=== PATIENT | male | born 1955 | race Caucasian/White ===

== ENCOUNTER 2017-02-05 08:35 | Inpatient (IN) | payer OTHER ==
--- NOTE | 2017-02-02 10:31 | HP ---
DATE OF CLINIC: 01/24/2017 DARIUS CHURCH : 1955 PLANNED PROCEDURE: Right Knee Unicompartmental Arthroplasty DATE OF SURGERY: February 05, 2017 SURGEON: Henrique Vasquez M.D. HISTORY OF PRESENT ILLNESS Darius Church is a 61 year old male. * Medication list reviewed with patient allergy list reviewed with patient. Mr. Church is in today pre-operatively for his upcoming right unicompartmental versus total knee arthroplasty with Dr. Vasquez on 02/05/17. Patient presents in good spirits and is ready to proceed. Patient states he had a recent fall on his left knee resulting in bruising but no instability or ongoing pain. Patient denies recent illness, change in health or prior surgical complications. His recent consult with Dr. Vasquez follows: 61-year-old male previously known to me for a right knee arthroscopy with partial medial meniscectomy and a chondroplasty of the medial femoral condyle over 3 years ago. He did quite well with this eventually having marked improvement in his pre-op symptoms over the course of 8 months or so. Unfortunately, he has begun having worsening problems. He recently saw Cem for this on 08/03/16. Over the last several months it has been very difficult to ambulate even a short distance because of weight-bearing related medial pain. He has had some associated swelling as well as night pain. At times he feels a sharp, catching sensation, no traumatic events. He has no radiating or radicular symptoms. When he saw Cem, radiographs were obtained that are available for my review concerning for AVN of the medial femoral condyle, certainly at least an area of osteochondral abnormality in the medial femoral condyle. Cem ordered an MRI scan that is available for my review. It confirms a greater than 2cm osteochondral lesion of the medial femoral condyle surrounded by a fluid filled cleft. He is interested in discussing definitive management options. We discussed both operative and non-operative management and he has elected to proceed with surgical intervention. He presents today preoperatively. Comorbidities include hypertension and obesity. CURRENT MEDICATION * AmLODIPine Besylate 10 MG Tablet once a day 0 days, 0 refills * Losartan Potassium 50 MG Tablet once a day 0 days, 0 refills * Metoprolol Succinate ER 25 MG Tablet Extended Release 24 Hour once a day 0 days, 0 refills PAST MEDICAL/SURGICAL HISTORY Reported: Medical: History of Arthritis. Surgical / Procedural: Prior surgery Back surgery 1996, Arthroscopy Right knee scope/PMM 07/08/[address] Vasquez, and Back Surgery 1996. SOCIAL HISTORY Behavioral: Caffeine use and non-smoker never smoked. Smoking status: Never smoker. Alcohol: Alcohol a lot and alcohol use. Work: Occupation retired. ALLERGIES * No Known Allergies REVIEW OF SYSTEMS Systemic: No fever and no recent weight change. Head: No head symptoms. Cardiovascular: No cardiovascular symptoms. Pulmonary: No pulmonary symptoms. Gastrointestinal: No gastrointestinal symptoms. Psychological: No psychological symptoms. Skin: No skin lesions and no rash: Musculoskeletal: Left knee contusion. PHYSICAL FINDINGS * Vitals taken 01/24/2017 10:47 am BP-Sitting R 131/89 mmHg 100 - 120/60 - 80 BP Cuff Size Regular Pulse Rate-Sitting 77 bpm 50 - 100 Temp-Oral 98.6 F 96 - 101 Height 69 in 64 - 74 Weight 291 lbs 123 - 215 Body Mass Index 43.0 kg/m2 Body Surface Area 2.42 m2 Pain Level 0 Ears, Nose, Throat: * ENT: normal. Lungs: * Clear to auscultation. Cardiovascular: Heart Rate and Rhythm: * Normal. Abdomen: * Normal. Neurological: Motor: * Dominant Hand = Right Hand. Patient is an obese male in no acute distress, normal-appearing mood and affect. He has a very stiff-legged, antalgic gait. Right knee exam shows varus alignment that is reducible to neutral. Skin integrity is well-preserved, no wounds, rashes or lesions. He does have a 1+ effusion. No focal swelling. He is quite tender over the medial jointline that is reproducible. No pain with patellofemoral compression. NT laterally. Motion actively is 10-85 degrees, passively 0-105 degrees with pain at extremes. He has significant discomfort with Ibeth's, unable to tolerate squat. Ligamentous exam is intact for cruciates and collaterals. Calf is soft and NT. Distal light touch sensation and motor function are grossly intact and symmetric. Pulses are palpable. Gentle rotation of the hip is non-irritable. Contralateral knee exam is normal. TESTS Imaging as above. 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 Suggest underlying causative factor is AVN. PREVIOUS TESTS * Test: CBC WITH DIFF Report Date: 01/17/2017 WBC 5.6 10*3/mL BASOPHIL 0.7 % RBC 4.54 10*6/uL Low NEUTROPHILS 71.9 % MCH 34.6 pg High MCHC 35.9 g/dL RDW 12.9 % MCV 96.3 fL High PLATELET COUNT 214 10*3/mL IMM NEUT % 0.5 % IMM NEUT # 0.0 10*3/mL MONOCYTES 6.4 % EOSINOPHIL 0.5 % Low HCT 43.7 % HGB 15.7 g/L LYMPHOCYTE 20.0 % ANC 4.0 10*3/mL * Test: URINALYSIS Report Date: 01/17/2017 GLUCOSE NEGATIVE PH,URINE 6.0 SPEC. GRAVITY 1.020 KETONE NEGATIVE NITRITE NEGATIVE BLOOD NEGATIVE BILIRUBIN NEGATIVE APPEARANCE CLEAR PROTEIN NEGATIVE COLOR LOWELL LEUK ESTERASE NEGATIVE UROBILINOGEN NORMAL * Test: PROTHROMBIN TIME Report Date: 01/17/2017 PROTIME 9.9 s INR 0.94 * Test: PARTIAL THROMBOPLASTIN TIME Report Date: 01/17/2017 APTT 24.7 s * Test: COMPREHENSIVE METABOLIC PANEL Report Date: 01/17/2017 ALT/SGPT 30 U/L ALBUMIN 4.4 g/dL ALB/GLOB RATIO 1.5 BUN 22 mg/dL BUN/CREAT RATIO 22 High CALCIUM 9.2 mg/dL GLUCOSE 140 mg/dL High CREATININE 1.0 mg/dL SODIUM 139 meq/L POTASSIUM 3.4 meq/L Low CHLORIDE 100 meq/L CARBON DIOXIDE 32 meq/L High ANION GAP 10 meq/L TOT PROTEIN 7.3 g/dL GLOBULIN 2.9 g/dL BILI,TOTAL 0.9 mg/dL AST/SGOT 25 U/L ALK PHOSPHATASE 85 U/L GFR 76 * Test: MRSA SCREEN Report Date: 01/18/2017 MRSA SCREEN NEGATIVE * Test: MSSA SCREEN Report Date: 01/18/2017 MSSA SCREEN NEGATIVE FOR STAPHYLOCOCCUS AUREUS THERAPY * Patient not eligible for fall risk assessment. PLAN * Unilateral post-traumatic osteoarthritis, right knee Physical Therapy: PT Mary Kay [facility] * Aftercare following joint replacement surgery OxyCODONE HCl 5 MG TABS, 1or 2 tablets every 4 to 6 hours as needed, 5 days, 0 refills OxyCONTIN 10 MG T12A, 1 twice a day, 10 days, 0 refills TraMADol HCl 50 MG TABS, four times a day, 10 days, 0 refills * Knee replacement -partial, on the right (UKA) Discussed with patient in detail the limitations, expectations as well as risks and possible complications of surgery including, but not limited to wound problems or infection, neurovascular injury, continued knee pain or dysfunction, including the possibility of prosthetic wear or failure over time that may require additional operative or non-operative treatment. Patient also realizes the perioperative risks including risks associated with anesthesia and would like to proceed. A full PAR conference was held, questions and concerns addressed and informed consent was obtained. Patient will be sent from my office for completion of the preoperative workup [facility] consult for perioperative medical management. Patient will use aspirin 325mg daily for 6 weeks postoperatively for DVT prophylaxis. Patient would like to perform their postop PT at [facility] with right total knee arthroplasty protocol. CARE TEAM Korey Duran MD, PC [facility] CC: Korey Duran MD [facility]SEA [facility] RS/sg
[2017-02-05] MEDS ORDERED: FENTANYL 100 MCG/2 ML VIAL ONE (09:41)
[2017-02-05] MEDS ORDERED: MIDAZOLAM HCL 1 MG/ML 2ML VIAL ONE ×2 (09:41→11:06)
[2017-02-05] MEDS ORDERED: PROPOFOL 20 ML IV ONE ×3 (09:41→12:54)
[2017-02-05] MEDS ORDERED: CEFAZOLIN SODIUM 2 GRAM PREMIX 100 ML IV PRN (09:45)
[2017-02-05] MEDS ORDERED: LACTATED RINGERS 1,000 ML ONE ×3 (10:11→14:41)
[2017-02-05] MEDS ORDERED: IV START KIT ONE (10:11)
[2017-02-05] MEDS ORDERED: NERVE BLOCK PROCEDURAL TRAY 1 EACH ONE (10:19)
[2017-02-05] MEDS ORDERED: SPINAL PROCEDURAL TRAY 1 EACH ONE (10:19)
[2017-02-05] MEDS ORDERED: ROPIVACAINE 0.5% 30 ML VIAL ONE (10:19)
[2017-02-05] MEDS ORDERED: FAMOTIDINE 20 MG TABLET ONE (10:38)
[2017-02-05] MEDS ORDERED: OXYCODONE HCL 10 MG TAB.SR PO ONE ×2 (10:38→11:40)
[2017-02-05] MEDS ORDERED: ONDANSETRON 4 MG/2ML 2 ML VIAL ONE (10:38)
[2017-02-05] MEDS ORDERED: TRAMADOL HCL 50 MG TABLET ONE (10:38)
[2017-02-05] MEDS ORDERED: GABAPENTIN 600 MG TABLET ONE (10:39)
[2017-02-05] MEDS ORDERED: CELECOXIB 200 MG CAPSULE ONE (10:39)
[2017-02-05] MEDS ORDERED: CLONIDINE HCL 0.1 MG/24 HR (7 DAY PATCH) TD ONE (10:39)
[2017-02-05] MEDS ORDERED: FAMOTIDINE 20 MG TABLET PO ONE (11:40)
[2017-02-05] MEDS ORDERED: TRAMADOL HCL 50 MG TABLET PO ONE (11:40)
[2017-02-05] MEDS ORDERED: GABAPENTIN 600 MG TABLET PO ONE (11:40)
[2017-02-05] MEDS ORDERED: TRANEXAMIC ACID 1,000 MG in SODIUM CHLORIDE 0.9% 100 ML IV PRN (11:40)
[2017-02-05] MEDS ORDERED: BUPIVACAINE 0.25% (MDV) 24 ML, MORPHINE SULFATE 8 MG, EPINEPHRINE 0.3 MG in SODIUM CHLO... IF PRN (11:40)
[2017-02-05] MEDS ORDERED: CELECOXIB 200 MG CAPSULE PO ONE (11:40)
[2017-02-05] MEDS ORDERED: ONDANSETRON 4 MG/2ML 2 ML VIAL IV ONE (11:40)
[2017-02-05] MEDS ORDERED: POLYMYXIN B SULFATE 500,000 UNITS, BACITRACIN 25,000 UNITS in SODIUM CHLORIDE 3 L IRRIG... IR PRN (11:40)
[2017-02-05] MEDS ORDERED: CLONIDINE HCL 0.1 MG/24 HR (7 DAY PATCH) TD SCH (11:40)
[2017-02-05] MEDS ORDERED: BUPIVACAINE 0.25% (MDV) 20 ML in SODIUM CHLORIDE 0.9% FLUSH 20 ML IF PRN (11:40)
[2017-02-05] MEDS ORDERED: ONDANSETRON 4 MG/2ML 2 ML VIAL IV PRN ×2 (12:52→15:27)
[2017-02-05] MEDS ORDERED: KETAMINE HCL UD SYRINGE 100 MG/2 ML IV ONE (12:52)
[2017-02-05] MEDS ORDERED: MEPERIDINE 25 MG/ML SYRINGE IV PRN (12:52)
[2017-02-05] MEDS ORDERED: HYDRALAZINE HCL 20 MG/1 ML VIAL IV PRN (12:52)
[2017-02-05] MEDS ORDERED: LABETALOL HCL 5 MG/ML 20ML VIAL IV PRN (12:52)
[2017-02-05] MEDS ORDERED: NALOXONE HCL 0.4 MG/ML VIAL IV PRN (12:52)
[2017-02-05] MEDS ORDERED: HYDROMORPHONE HCL 1 MG/ML SYRINGE IV PRN (12:52)
[2017-02-05] MEDS ORDERED: ATROPINE SULFATE 0.4 MG/1 ML VIAL IV PRN (12:52)
[2017-02-05] MEDS ORDERED: PROMETHAZINE HCL 25 MG/ML VIAL IM PRN (12:52)
[2017-02-05] MEDS ORDERED: FENTANYL 100 MCG/2 ML VIAL IV PRN (12:52)
[2017-02-05] MEDS ORDERED: LACTATED RINGERS 1,000 ML IV SCH (13:00)
[2017-02-05] MEDS ORDERED: ON-Q PUMP/ROPIVACAINE 0.2% 450 ML ONE (14:32)
--- NOTE | 2017-02-05 14:45 | PCMBPN ---
Brief Post Op Note: Date of Procedure: 02/05/17 Preoperative Diagnosis: DJD right knee Postoperative Diagnosis: same Procedure: right knee UKA Surgeon: Henrique Vasquez MD Assist: Zahraa (YEN) Anesthesia: spinal/add block (Yousif) Findings: medial femoral DJD/AVN Condition: stable to PAR Complications: none IV Fluids: 2000 mLs of LR Urine Output: 200 mLs Estimated Blood Loss: 160 mLs Tourniquet Time: ~70 Specimens: [N/A] Implants: ZUK Drains: none
[2017-02-05] MEDS: ON-Q PUMP/ROPIVACAINE 0.2% 450 ML in PREMIX BAG 1 EACH NB PRN (15:14)
--- NOTE | 2017-02-05 15:20 | RAD ---
Exam: Two-view right knee COMPARISON: 08/03/2016 INDICATION: Postop right knee FINDINGS: AP and crosstable lateral views the right knee were obtained. There has been arthroplasty within the medial compartment of the right knee. Alignment is normal. No pericomponent fracture is identified. IMPRESSION: Expected postoperative appearance following arthroplasty within the medial compartment of the right knee.
[2017-02-05] MEDS ORDERED: ON-Q PUMP/ROPIVACAINE 0.2% 450 ML in PREMIX BAG 1 EACH NB PRN (15:27)
[2017-02-05] MEDS ORDERED: CALCIUM CARBONATE 500 MG TAB.CHEW PO PRN (15:27)
[2017-02-05] MEDS: HYDROMORPHONE HCL 0.5 MG/0.5 ML SYRINGE IV PRN ×2 (16:04→16:54)
[2017-02-05 16:43] VITALS: BMI 48.2
[2017-02-05] MEDS ORDERED: PUMP TUBING ONE (16:46)
[2017-02-05] MEDS: D5 1/2NS with 20 mEq KCL 1,000 ML IV SCH ×2 (16:55→22:25)
[2017-02-05] MEDS: KETOROLAC TROMETHAMINE 30 MG/ML 1 ML VIAL IV PRN (17:46)
[2017-02-05] MEDS: OXYCODONE HCL 5 MG TABLET PO PRN (18:46)
[2017-02-05] MEDS: CEFAZOLIN SODIUM 1 GRAM PREMIX 1 G in Premix (D5W) 50 ml 1 EACH IV SCH (21:00)
[2017-02-05] MEDS: ASCORBIC ACID 500 MG TABLET PO SCH (21:00)
[2017-02-05] MEDS: DOCUSATE SODIUM 100 MG CAPSULE PO SCH (21:00)
[2017-02-05] MEDS: ACETAMINOPHEN 500 MG TABLET PO SCH (21:00)
[2017-02-05] MEDS ORDERED: TRAMADOL HCL 50 MG TABLET PO PRN (21:00)
[2017-02-06] MEDS: ON-Q PUMP/ROPIVACAINE 0.2% 450 ML in PREMIX BAG 1 EACH NB PRN ×2 (03:15→08:20)
[2017-02-06] MEDS: OXYCODONE HCL 5 MG TABLET PO PRN ×4 (04:38→16:35)
[2017-02-06] MEDS: ACETAMINOPHEN 500 MG TABLET PO SCH ×3 (04:38→16:35)
[2017-02-06] MEDS: CEFAZOLIN SODIUM 1 GRAM PREMIX 1 G in Premix (D5W) 50 ml 1 EACH IV SCH (04:47)
[2017-02-06] MEDS: D5 1/2NS with 20 mEq KCL 1,000 ML IV SCH ×2 (05:55→12:02)
[2017-02-06 06:14] LABS: HEMATOCRIT 38.5 % (32.0-52.0); HEMOGLOBIN 13.3 gm/l (14.0-18.0); MEAN CELL VOLUME 100.5 fl (80.0-94.0); MEAN CORPUSCULAR HEMOGLOBIN 34.7 pg (27.0-31.0); MEAN CORPUSCULAR HGB CONC 34.5 g/dl (33.0-37.0); RED CELL DISTRIBUTION WIDTH 13.2 % (11.5-14.5)
[2017-02-06 06:29] LABS: CALCIUM 8.7 mg/dL (8.6-10.3)
--- NOTE | 2017-02-06 06:44 | CONS ---
Darius Church [id number] DATE OF ADMISSION: 02/05/2017 DATE OF CONSULTATION: 02/05/2017 PHYSICIAN REQUESTING CONSULTATION: Dr. Henrique Vasquez REASON FOR CONSULTATION: For the perioperative management of the patient's medical problems. These medical problems including chronic essential hypertension, obesity, and concerns regarding possible excessive alcohol use. PROCEDURE PERFORMED DURING THE HOSPITALIZATION: Includes right knee unicompartmental arthroplasty under spinal anesthesia performed earlier today without complications. TO SUMMARIZE THE ADMISSION AND HOSPITAL COURSE: The patient is a 61-year-old male admitted for elective surgery as mentioned above because of progressive knee pain failing conservative measures. REVIEW OF SYSTEMS: His preoperative review of systems was negative for any recent fevers, chills, or upper respiratory infections. He denies complaints of cough, dyspnea, wheezing, chest pain, shortness of breath, or palpitations. He denies nausea, vomiting, abdominal pain, diarrhea, or constipation. He has some knee pain as I mentioned above, but no other acute arthralgias. No headaches, fainting, blackouts, or seizures. No urinary complaints. His review of systems is otherwise negative. PAST MEDICAL HISTORY: Significant for hypertension and obesity. He has never had any medical hospitalizations. He denies history of chronic lung disease or coronary artery disease. PAST SURGICAL HISTORY: Significant for L5 surgery in 1996, right knee arthroscopy in 2012, and a hemorrhoidectomy years ago along with a colonoscopy years ago. ALLERGIES: He has no known drug allergies. CURRENT MEDICATIONS: Consist of: 1. Metamucil 1 dose a day. 2. Toprol XL 50 mg daily. 3. Cozaar 50 mg daily. 4. Chlorthalidone 25 mg daily. 5. Aspirin 1 to 2 twice daily as needed for arthritic pain. 6. Amlodipine 10 mg daily. FAMILY HISTORY: Unremarkable. SOCIAL HISTORY: He is . He has a number of grown kids. His primary care provider is Dr. Korey Duran in [place]. He denies tobacco or illicit drug use. He does drink wine regularly up to a bottle a night, but it is difficult to pin it down. PHYSICAL EXAMINATION: VITAL SIGNS: Show temperature 97.4, pulse 64, blood pressure 130/84, respirations 14, oxygen saturation 95% on 2 liters, body mass index is 48.2, weight is 131.4 kg. GENERAL: This is an obese male in no acute distress. HEENT: Unremarkable. LUNGS: Clear to auscultation bilaterally. CARDIOVASCULAR: Reveals a regular rate and rhythm without a murmur. ABDOMEN: Obese, soft, nontender, nondistended with positive bowel sounds. EXTREMITIES: Surgical dressing is present over the right knee. There is trace to 1+ pitting edema in both lower extremities. Capillary refill is less than 2 seconds in both feet. PREOPERATIVE LABORATORY STUDIES: Included a CBC with a white count of 5.6, hemoglobin of 15.7, platelet count of 214,000 drawn on January 17. Coagulation panel that same day was normal. Chemistry panel that same day showed a sodium of 139, potassium 3.4, carbon dioxide 32, BUN 22, creatinine 1.0, glucose 140, this was non-fasting. Urinalysis unremarkable. ASSESSMENT AND PLAN: The patient has chronic essential hypertension and morbid obesity, these medical problems are complicating recent right knee unicompartmental arthroplasty, also there is concern about daily alcohol use and the risk of potential alcohol withdraw. He is expected to be in the hospital for 24 to 48 hours. He is being allowed to drink wine with his dinner. He has parameters for his blood pressure medications ordered. His obesity will complicate his postoperative course. He will be followed by the hospitalist service while he is in the hospital and return to the care of his primary care provider, Dr. Duran at discharge. His venous thromboembolism risk is moderate and mechanical measures have been ordered for prophylaxis in addition to daily aspirin. JOB: [id number] CC: Dr. Henrique Duran
[2017-02-06] MEDS ORDERED: LOSARTAN POTASSIUM 50 MG TABLET PO SCH (09:00)
[2017-02-06] MEDS ORDERED: METOPROLOL SUCCINATE (XL) 50 MG TAB.PRT.SR PO SCH (09:00)
[2017-02-06] MEDS ORDERED: CELECOXIB 200 MG CAPSULE PO SCH (09:00)
[2017-02-06] MEDS ORDERED: MULTIVITAMINS 1 TAB TABLET PO SCH (09:00)
[2017-02-06] MEDS ORDERED: ASPIRIN (ENTERIC COATED) 325 MG TABLET.EC PO SCH (09:00)
[2017-02-06] MEDS ORDERED: CHLORTHALIDONE 50 MG TABLET PO SCH (09:00)
[2017-02-06] MEDS ORDERED: AMLODIPINE BESYLATE 5 MG TABLET PO SCH (09:00)
[2017-02-06] MEDS ORDERED: PSYLLIUM SEED PO SCH (09:00)
[2017-02-06] MEDS: ASCORBIC ACID 500 MG TABLET PO SCH (10:06)
[2017-02-06] MEDS: DOCUSATE SODIUM 100 MG CAPSULE PO SCH (10:07)
--- NOTE | 2017-02-06 10:13 | PDOC43 ---
- Subjective Findings: Pt seen this morning up and doing well. Minimal pain at this point. He has been doing bed exercise and states would like to go home if possible today. Subjective: Reports Pain Tolerable, Denies Flatus, Denies Chest Pain, Denies Shortness of Breath, Denies Nausea, Denies Vomiting, Denies Fever - Objective Vital Signs Temperature 97.6 F 02/06/17 07:38 Pulse Rate 69 02/06/17 07:38 Respiratory Rate 18 02/06/17 07:38 Blood Pressure 121/71 02/06/17 07:38 O2 Saturation by Pulse Oximetry 96 02/06/17 07:38 Oxygen Delivery Method Room Air Oxygen Flow Rate 0 Laboratory 02/06/17 05:45 02/06/17 05:45 02/06/17 05:45 RBC 3.83 L MCV 100.5 H MCH 34.7 H Active Medication Orders Category Date Time Status Acetaminophen [Tylenol] Med 02/05/17 21:30 Active 1,000 mg PO Q6H Amlodipine Besylate [Norvasc] Med 02/06/17 09:00 Active 10 mg PO DAILY Ascorbic Acid [Vitamin C] Med 02/05/17 21:00 Active 500 mg PO BID Aspirin (Enteric Coated) [Ecotrin] Med 02/06/17 09:00 Active 325 mg PO DAILY Bisacodyl [Dulcolax] Med 02/08/17 14:37 Active 10 mg [place] DAILY PRN Calcium Carbonate [Tums] Med 02/05/17 15:27 Active 1,000 - 2,000 mg PO Q2H PRN Celecoxib [Celebrex] Med 02/06/17 09:00 Active 200 mg PO DAILY Chlorthalidone [Hygroton] Med 02/06/17 09:00 Active 25 mg PO DAILY D5 1/2NS with 20 mEq KCL [D51/2NS with 20 mEq KCL] 1, Med 02/05/17 15:27 Active 000 ml IV 150 mls/hr Docusate Sodium [Colace] Med 02/05/17 21:00 Active 100 mg PO BID Hydromorphone HCl [Dilaudid] Med 02/05/17 15:27 Active 0.5 mg IV Q1H PRN Ketorolac Tromethamine [Toradol] Med 02/05/17 15:27 Active 30 mg IV Q6H PRN Losartan Potassium [Cozaar] Med 02/06/17 09:00 Active 50 mg PO DAILY Magnesium Hydroxide [Milk of Magnesia] Med 02/06/17 14:37 Active 30 ml PO DAILY PRN Metoprolol Succinate (Xl) [Toprol Xl] Med 02/06/17 09:00 Active 50 mg PO DAILY Multivitamins [One-A-Day] Med 02/06/17 09:00 Active 1 tab PO DAILY On-Q Pump/Ropivacaine 0.2% 450 ml Med 02/05/17 15:20 Active Premix Bag [Premix Fluid] 1 each NB Q50H Ondansetron 4 mg/2ml Vial [Zofran] Med 02/05/17 15:27 Active 4 - 6 mg IV Q6H PRN Oxycodone HCl [Roxicodone] Med 02/05/17 15:27 Active 5 - 10 mg PO Q4H PRN Psyllium Seed [Metamucil] Med 02/06/17 09:00 Active 1 packet PO DAILY Remove Patch Med 02/06/17 14:37 Once 1 each TD X1 ONE Sodium Chloride 0.9% Flush [Normal Saline 10ml Flush] Med 02/05/17 15:27 Active 10 - 50 ml IV PRN PRN Sodium Chloride 0.9% Flush [Normal Saline 10ml Flush] Med 02/05/17 17:00 Active 10 ml IV Q8HR Tramadol HCl [Ultram] Med 02/05/17 21:00 Active 50 mg PO Q6H PRN Intake and Output 02/04/17 02/05/17 02/06/17 23:59 23:59 23:59 Intake Total 2350 1800 Output Total 445 525 Balance 1905 1275 General: Afebrile HEENT: Atraumatic Lungs: Normal Air Movement Cardiovascular: Regular Rate and Rhythm Abdomen: Soft Skin: Normal Color Neurological: Alert, Oriented x 4 - Right Lower Extremity Incision: Other (Nerve cath site with some minimal drainage around bandage) Motor: Extensor Hallucis Longus: 5/5, Tibialis Anterior: 5/5, Gastrocnemius: 5/5 , Peroneals: 5/5, Quadriceps: 3/5 Gross Sensation to Light Touch: Present: Deep Peroneal Nerve Capillary Refill: < 3 Seconds Motion: Calf soft NT Rom knee 0-85 Ind SLR - Problems (1) Status post unicompartmental knee replacement, right Status: AcuteAssessment/Plan: Pod#1 1. Physical Therapy:Mobilize with PT/OT. Encouraged bed exercises 2. Pain Control:Per protocol and nerve cath 3. DVT Prophylaxis:ASA, foot pump and mobility 4. Disposition:Doing well 5. Medical Issues: Hyponatremic asymptomatic at this point. Possible d/c today if meets criteria
[2017-02-06] MEDS ORDERED: REMOVE PATCH 1 EACH UNIT TD SCH (11:40)
[2017-02-06] MEDS: KETOROLAC TROMETHAMINE 30 MG/ML 1 ML VIAL IV PRN (14:04)
[2017-02-06] MEDS ORDERED: MAGNESIUM HYDROXIDE 30 ML UDCUP PO PRN (14:37)
[2017-02-06] MEDS ORDERED: REMOVE PATCH 1 EACH UNIT TD ONE (14:37)
[2017-02-06 15:29] VITALS: BP 97/57
--- NOTE | 2017-02-07 10:27 | OP ---
IRENE JOHNSTON [id number] : 1955 DATE OF SURGERY: February 05, 2017 PREOPERATIVE DIAGNOSIS: DJD, right knee. POSTOPERATIVE DIAGNOSIS: DJD, right knee. PROCEDURE: Right Knee Medial Unicompartmental Arthroplasty COMPONENTS: ZUK size E cemented femoral component, size 5 cemented medial tibial base plate, 8mm Vivacit E highly cross-linked polyethylene articular insert. SURGEON: Henrique Vasquez M.D. ADMINISTRATIVE RESOURCES ASSOCIATE: Peter OCHOA) ANESTHESIA: Spinal plus adductor nerve block per Yousif ESTIMATED BLOOD LOSS: 160 cc IV FLUID REPLACEMENT: per anesthesia, 2 liters crystalloid. URINE OUTPUT: 200 cc DRAINS: None TOURNIQUET TIME: Approximately 70 minutes COMPLICATIONS: None HISTORY: Briefly, patient is a 61-year-old male with clinical and radiographic evidence of advanced degenerative disease of the medial compartment of the right knee. Patient has failed traditional non-operative management and desire elective unicompartmental arthroplasty vs total knee arthroplasty. For additional details, please refer to the previously dictated Preoperative History and Physical Examination. A PAR conference was held, questions and concerns were addressed, and informed consent was obtained. FINDINGS: Medial compartment degenerative disease involving primarily the femoral component with changes consistent with AVN. Patellofemoral joint was spared as was the visualized portion of the lateral compartment. There was evidence of deficient mid-body medial meniscus. ACL was intact. PROCEDURE: The patient was taken to the operating room after the placement of a spinal anesthetic and regional nerve block. They were placed supine on the operating room table, a tourniquet was applied to the proximal thigh and the right lower extremity was prepped and draped out in the usual sterile fashion. Preoperative IV antibiotics were given empirically. Intraoperative DVT prophylaxis consisted of contralateral foot pumps. Personal filtration suits were used as was a closed room environment. At this point WHO timeout was taken. Surgical site was identified and confirmed. The leg was then elevated and the tourniquet inflated after gravity exsanguination. Tranexamic acid was infiltrated over 10 minutes prior to incision, 1 gram dose per protocol. A similar 2nd dose was given at initiation of closure. With the knee flexed, an anteromedial incision was made from the level of the tibial tubercle to the superior pole of the patella. A medial arthrotomy was performed. A medial subperiosteal proximal tibial release was performed and a portion of the anterior fat pad was excised to improve visualization. We evaluated the involvement of the patellofemoral compartment as well as the lateral compartment. We confirmed the ACL was intact. The anterior horn of the medial meniscus was excised. Minimally invasive instrumentation and philosophy were used throughout the procedure in an attempt to decrease the extent of soft tissue disruption/damage. Patient matched cutting blocks were also used as per our preoperative plan. The PSI tibia block was then positioned and secured to the bone. We confirmed that the alignment matched our preoperative plan and made the proximal tibial cut with a sagittal and reciprocating saw. We removed medial marginal osteophytes. Attention was then directed to the femur. The PSI distal femoral block was applied and secured to bone. We confirmed alignment as per our preoperative plan and the distal femoral cut made. We then evaluated the extension gap. It was still somewhat tight. We took an additional 2mm off of the femoral side. We confirmed the size of the femur and placed the appropriate posterior and posterior chamfer cutting block. These cuts were made as was drilling of the femoral lugs. Residual marginal osteophytes were removed. We then confirmed the flexion and extension gaps were balanced. Tibia was then sized. We passed a small osteotome at the lateral border and placed our tibial trial. Tibial lugs were drilled and we trialed the entire construct obtaining full extension and smooth rollback. Satisfied, double antibiotic pulsatile lavage was used to irrigate the knee and clean the cancellous heather interstices which were then carefully dried. Periarticular injection was done at this point per protocol of the posterior capsule, posteromedial knee and synovium. A single dose of high viscosity, antibiotic impregnated polymethylmethacrylate was used to cement the tibial followed by femoral components. The knee was held in extension while the cement cured. All residual methacrylate was meticulously removed. Attention was then directed towards closure. Tranexamic acid was infiltrated over 10 minutes, dose per protocol. We irrigated and the retinaculum was closed with a running #2 absorbable StratoFix suture. A second periarticular injection was done at this point per protocol. The repair was checked in maximum flexion. We then lightly irrigated the subcutaneous tissue and closed with interrupted 2-0 and 3-0 Vicryl Plus. The skin was then re-approximated with surgical clips. A sterile Aquacel dressing was applied followed by a compression dressing. The patient was then transferred to their hospital bed and sent to the post anesthesia recovery room in stable condition. They tolerated the procedure well. Sponge, instrument, and needle count were correct. CC: Korey Mor[facility]
--- NOTE | 2017-02-07 10:27 | DS ---
Darius JOHNSTON [id number] : 1955 DATE OF ADMISSION: February 05, 2017 DATE OF DISCHARGE: February 06, 2017 DISCHARGE DIAGNOSES: Right knee medial compartment osteoarthritis. HOSPITAL PROCEDURES: Right unicompartmental knee arthroplasty. SURGEON: Henrique Vasquez M.D. BRIEF HISTORY: Patient is a 61-year-old male with clinical and radiographic evidence of advanced DJD of their right knee. For the full history please see the chart note. BRIEF HOSPITAL COURSE: Patient was admitted on February 05, 2017. Dr. Henrique Vasquez performed a right total knee arthroplasty. They were moved to the recovery room in stable condition. They were given 4 doses of antibiotic for empiric coverage. DVT prophylaxis consisted of enteric-coated aspirin, WALT hose and AV foot pumps. PT was instituted postop day, 0 with right total knee arthroplasty protocol, weightbearing as tolerated. Their incision site remained benign, their vital signs remained stable and they remained neurally and vascularly intact through the duration of the stay. They were discharged home on postop day, 1 to continue their outpatient PT at [facility] with right total knee arthroplasty protocol, weightbearing as tolerated. The patient was seen and risk management consultant by Dr. Jus Arana hospitalist for management of comorbidities. DISCHARGE INSTRUCTIONS: 1. Keep the wound site clean. May shower with Aquacel dressing intact. Call office with any questions or concerns and f/u for your dressing change as scheduled 1 week postop. 2. Continue the use of WALT hose bilaterally. 3. Cooling unit 3-4 times daily for 30 minutes duration. 4. Outpatient PT at [facility] for right total knee arthroplasty protocol, weightbearing as tolerated. MEDICATIONS: 1. Patient is to resume normal preop medications. 2. Anti-coagulation will be with enteric-coated aspirin 325 mg one each day for six weeks. 3. Pain management will be with Oxycodone, 5mg 1-2 every 4 hours prn for breakthrough pain, and Tramadol, 50mg every 6 hours prn pain, as well as Celebrex 200 mg one by mouth every day for two weeks 4. Patient was also advised on utilization of a multi-vitamin with mineral daily as well as Vitamin C, 500mg daily for 1 month. 5. Patient encouraged to take an iron supplement in the form of ferrous sulfate, 325mg daily for 4 weeks. 6. Colace, 100mg, b.i.d. until regular bowel movement. FOLLOW-UP: Please return to the clinic as scheduled for your first scheduled postop check. Prior to that point in time please call with any questions or concerns. Job [id number] CC: Andrew Duran M.D. Family Practice
[2017-02-08] MEDS ORDERED: BISACODYL 10 MG SUP PR PRN (14:37)
== END 2017-02-06 16:55 | disposition home or self-care (01) | DRG 470 ==
LOC: OR 09:57 → MS 16:01
PROVIDERS: ADMIT Orthopaedic Surgery; ATTEND Orthopaedic Surgery
PROC: 0SRC0L9 Replacement of Right Knee Joint with Medial Unicondylar Synthetic Substitute, Cemented, Open Approach (ICD-10-PCS; principal; 2017-02-05)
DX: M17.31 Unilateral post-traumatic osteoarthritis, right knee (principal); M87.9 Osteonecrosis, unspecified; E87.1 Hypo-osmolality and hyponatremia; Z68.41 Body mass index [BMI] 40.0-44.9, adult; I10 Essential (primary) hypertension; E66.01 Morbid (severe) obesity due to excess calories; W19.XXXA Unspecified fall, initial encounter